=== PATIENT | female | born 1970 | race African-American/Black ===

== ENCOUNTER 2016-12-27 18:06 | Emergency (ER) | payer OTHER ==
[~2016-12-27] VITALS: Ht 154.9 cm; Wt 54.4 kg
--- NOTE | ~2016-12-27 | CR72 ---
[facility]. [facility] A Service of [facility] & [facility] RADIOLOGY TEXT RESULTS PATIENT: MARIE JUSTIN LOCATION: SED : 72 UNIT #: [id number] AGE: [address]: Betsey Ramsey SEX: F ORDER DR: [id number] [address] [address] [id number] MR#: [id number] Acc #: [id number] NAME: MARIE JUSTIN : 1970 SEX: F STUDY DATE/TIME: 12/27/2016 19:17 UNIT: SED ROOM: STUDY DESCRIPTION: CR Chest Single View Portable Attending Physician: Betsey Ramsey Pa-C Ordering Physician: Physician Non-Staff Primary Care Physician: Primary Care Physician No MEDICAL IMAGING REPORT This report is preliminary unless electronic signature is present. EXAM Portable chest HISTORY Cough and shortness of air for 2 days. FINDINGS Cardiac size and pulmonary vascularity are normal. Mild right thoracic curve. No infiltrates or effusions. Metal foreign bodies projected over the midline upper mediastinum and right upper chest, likely external to the patient. IMPRESSION Negative. Dictated by... Blake Jordan M.D. THIS IS AN ELECTRONICALLY VERIFIED REPORT Blake Jordan M.D. at 12/28/2016 2:22 PM DAVE/facundo TD: 12/28/2016 12:48 JOB #: [id number] MEDICAL IMAGING REPORT Page 1 of 1
[~2016-12-27 18:06] MED LIST: AL-MAG HYDROX-S30 M1 PO; K-DUR20 ME1 PO; LOPRESSOR PO; LORTAB 5/500 TA1 TA1 PO; PROVERA10 MG PO; REVIA50 MG PO; XANAX0.5 MG PO
[2016-12-27] MEDS ORDERED: MAXZIDE 37.5 M1 EACH PO (18:24)
[2016-12-27] MEDS ORDERED: ALBUTEROL17 GM (18:24)
== END 2016-12-27 20:17 | disposition home or self-care (01) ==
LOC: SED 18:06
DX: J45.901 Unspecified asthma with (acute) exacerbation (principal); I10 Essential (primary) hypertension; K21.9 Gastro-esophageal reflux disease without esophagitis; F17.200 Nicotine dependence, unspecified, uncomplicated; Z88.6 Allergy status to analgesic agent; Z88.1 Allergy status to other antibiotic agents; Z88.8 Allergy status to other drugs, medicaments and biological substances; Z79.899 Other long term (current) drug therapy
CPT/HCPCS: 71010; 94640; 99285